=== PATIENT | male | born 2000 | race Caucasian/White ===

== ENCOUNTER 2021-12-19 07:24 | Emergency (ER) | payer BC, SELFPAY ==
[2021-12-19] VITALS (17 sets, daily range): BP systolic 115–129; BP diastolic 65–86; PULSE 64–86; RESP 16–26; TEMP 36.1; O2SAT 94–100
--- NOTE | ~2021-12-19 | XR_ITS ---
EXAMINATION: XR chest 1V portable DATE: 12/19/2021 08:11 INDICATION: Shortness of breath. TECHNIQUE: A single frontal view of the chest was obtained on 2 radiographs. COMPARISON: None. FINDINGS: The chest demonstrates clear lungs without pneumonia, pleural effusion, or pneumothorax. Th e heart size is normal. IMPRESSION: 1. No acute cardiopulmonary disease. Reviewed, dictated and finalized at location A.
--- NOTE | 2021-12-19 07:35 | ED.SOB ---
HPI - SOB/Dyspnea General Chief Complaint: Shortness of Breath/Dyspnea Stated Complaint: shortness of breath Time Seen by Provider: 12/19/21 07:34 Source: patient Mode of arrival: ambulatory History of Present Illness HPI Narrative: 21-year-old male with a history of asthma which he has had since his childhood, positive family history of asthma on Singulair and albuterol rescue inhaler presents to the ER with -- acute onset shortness of breath which started this morning. He ran out of his albuterol inhaler. -- Nonproductive cough -- wheezing no chest pain. No fever MD elicited complaint: shortness of breath, cough and asthma attack Pertinent past history: asthma Onset (ago): hour(s) ( started an hour ago) Timing: constant Severity: moderate Exacerbating factors: nothing Relieving factors: nothing Known history of: asthma Associated symptoms: denies other symptoms and cough Treatment prior to arrival: none Related Data Home Medications Medication Instructions Recorded Confirmed albuterol 90 mcg/actuation aerosol 90 mcg inhalation QID PRN 12/19/21 12/19/21 inhaler Shortness Of Breath montelukast 10 mg tablet 10 mg PO DAILY 12/19/21 12/19/21 (Singulair) Allergies Allergy/AdvReac Type Severity Reaction Status Date / Time No Known Allergies Allergy Verified 12/19/21 07:36 Review of Systems Review of Systems: All systems reviewed & are unremarkable except as noted in HPI and below Constitutional: Constitutional: Reports as per HPI and Reports no additional constitutional complaints Eyes: Eyes: Reports as per HPI and Reports no additional eye complaints ENT: Reports system reviewed and no additional complaints, except as documented and Reports as per HPI Cardiovascular: Cardiovascular: Reports as per HPI and Reports no additional cardiovascular complaints Respiratory: Respiratory: Reports as per HPI, Reports no additional respiratory complaints, Reports cough, Reports dyspnea and Reports wheezing Gastrointestinal: Gastrointestinal: Reports as per HPI and Reports no additional gastrointestinal complaints Genitourinary: Genitourinary: Reports no additional male genitourinary complaints and Reports as per HPI Musculoskeletal: Musculoskeletal: Reports no additional musculoskeletal complaints and Reports as per HPI Integumentary/Breasts: Skin/Breast: Reports system reviewed and no additional complaints, except as docu and Reports as per HPI Neurologic: Reports system reviewed and no additional complaints, except as documented and Reports as per HPI Psychiatric: Psychiatric: Reports no additional psychiatric complaints and Reports as per HPI Endocrine: Endocrine: Reports no additional endocrine complaints and Reports as per HPI Hematologic/Lymphatic: Hematologic/Lymphatic: Reports no additional hematologic/lymphatic complaints and Reports as per HPI Allergic/Immunologic: Allergic/Immunologic: Reports no additional allergic/immunologic complaints and Reports as per HPI [facility] Family History Family History (Updated 12/19/21 @ 07:40 by Carlos Parks MD) Father Asthma Exam Const: General: ill appearing Nutritional Appearance: thin Limitations: no limitations HENMT: Head: normal to inspection Ears: external ears normal General nose exam: Normal external nose present Face and sinus: normal facial exam Mouth: Yes Normal oral and palatal mucosa present Throat: posterior oropharynx normal Eyes: Conjunctivae: conjunctivae normal Pupils: Equal, round and reactive pupils present EOM: EOMs intact bilaterally Direct Ophthalmoscopy: no photophobia Neck: Neck: normal visual inspection, no lymphadenopathy and no meningeal signs Chest: Chest palpation & inspection: normal inspection of the chest Resp: Effort & Inspection: tachypneic and uses accessory muscles Auscultation: wheezes and diminished lung sounds Cardio: Rate: regular rate Rhythm: regular rhythm GI: GI Palp: Yes Soft to palpation A
[2021-12-19] MEDS: methylPREDNISolone SOD SUCC 125 MG VIAL IM (07:41)
[2021-12-19] MEDS: IPRATROPIUM 0.5 MG/ALBUTEROL SULFATE 2.5 MG AMPUL.NEB 3 ML INHALATION (07:42)
[2021-12-19] MEDS: ALBUTEROL SULFATE NEB 2.5 MG/3 ML INH INHALATION ×2 (07:53→08:47)
--- NOTE | 2021-12-19 07:54 | PC.NURSE ---
PT HAS COMPLETED 1 SAE NEB, WITHOUT MUCH IMPROVEMENT. PT STATES IT IS A LITTLE EASIER TO BREATHE, NOT TIGHT, HOWEVER CONTINUES TO ONLY BE ABLE TO SPEAK IN 1 WORD SENTENCES. ERP NOTIFIED AND NEW ORDERS TO BE GIVEN. RESP TECH AT BEDSIDE. WILL CONTINUE TO MONITOR.
--- NOTE | 2021-12-19 08:18 | PC.NURSE ---
PT IS SITTING UP ON STRETCHER READING AT THIS TIME. RESP STATUS HAS IMPROVED, PT REPORTS HE IS FEELING A LITTLE BETTER. PT IS ABLE TO SPEAK IN COMPLETE SENTENCES AT THIS TIME. WILL CONTINUE TO MONITOR.
--- NOTE | 2021-12-19 08:49 | PC.NURSE ---
PT IS GETTING ANOTHER NEB TX AT THIS TIME. WILL CONTINUE TO MONITOR.
== END 2021-12-19 09:05 | disposition home or self-care (01) ==
PROVIDERS: Emergency Provider Internal Medicine Critical Care Medicine; PCP Internal Medicine
DX: J45.901 Unspecified asthma with (acute) exacerbation (principal)
CPT/HCPCS: 71045; 94640; 96372; 99285; J2930